=== PATIENT | female | born 1995 | race Hispanic/Latino ===

== ENCOUNTER 2018-06-05 12:26 | Emergency (ER) | END 2018-06-05 13:32 | disposition left against medical advice (07) | LOC: ERS 12:26 | DX: Z53.21 Procedure and treatment not carried out due to patient leaving prior to being seen by health care provider (principal) ==

== ENCOUNTER 2018-06-05 15:32 | Inpatient (IN) | payer SELFPAY, OTHER ==
[2018-06-05] MEDS ORDERED: Ondansetron ODT 4 MG TAB ONE (15:55)
[2018-06-05 16:30] LABS: #Monocytes 0.4 thou/uL (0.11-0.59); #Neutrophils 15.2 thou/uL (1.40-6.50); %Basophils 0.1 % (0.0-1.0); %Eosinophils 0.1 % (0.0-10.0); %Lymphocytes 5.7 % (21.0-51.0); %Monocytes 2.2 % (0.0-10.0); %Neutrophils 91.8 % (42.0-75.0); Mean Corpuscular HGB CONC 31.6 g/dL (32.0-36.0); Mean Corpuscular Hemoglobin 24.7 pg (27.0-31.0); Mean Corpuscular Volume 78.2 fL (78.0-98.0); Mean Platelet Volume 6.7 fL (7.4-10.4); Platelet Count 439 thou/uL (130-400); RBC Distribution Width 13.4 % (11.5-14.5); Red Blood Cell (RBC) Count 4.87 mill/uL (4.20-5.40); White Blood Cell (WBC) Count 16.6 thou/uL (4.8-10.8)
[2018-06-05 16:35] LABS: Bilirubin Moderate (Negative); Blood, Urine Negative (Negative); Glucose, Urine (Dipstick) Negative (Negative); Leukocyte Negative (Negative); Nitrite Negative (Negative); Protein, Urine (Dipstick) 100 mg/dL (Neg-Trace); pH, Urine 8.5 (5.0-9.0)
[2018-06-05 16:36] LABS: BHCG - Serum Negative (NEGATIVE); Pregs Control Background? CLEAR/WHITE (CLR/WHITE); Pregs Control Bar Appear? YES (CONTROL BAR)
[2018-06-05 16:39] LABS: Clarity Hazy (Clear)
[2018-06-05 16:46] LABS: RBC/HPF None Seen HPF (0-3); Squamous Epithelial 0-3 HPF (0-3); WBC/HPF 0-3 HPF (0-3)
[2018-06-05 16:46] LABS: ALT (SGPT) 118 U/L (8-55); AST (SGOT) 169 U/L (5-34); Albumin 4.5 g/dL (3.5-5.0); Alkaline Phosphatase 141 U/L (40-150); Anion Gap 14 mmol/L (10-20); BUN (Urea Nitrogen) 10 mg/dL (7.0-18.7); Bilirubin, Total 1.6 mg/dL (0.2-1.2); Calc. Creatinine Clearance 0 mL/min (70-130); Calcium 9.8 mg/dL (7.8-10.44); Carbon Dioxide 23 mmol/L (22-29); Chloride 106 mmol/L (98-107); Estimated GFR-MDRD Greater than 90; Globulin 3.9 g/dL (2.4-3.5); Glucose 140 mg/dL (70-105); Lipase 26 U/L (8-78); Potassium 3.7 mmol/L (3.5-5.1); Protein, Total 8.4 g/dL (6.0-8.3); Sodium 139 mmol/L (136-145)
[2018-06-05 16:47] LABS: Bacteria/HPF Rare-Few HPF (None Seen); Hyaline Casts/LPF NONE SEEN LPF (0-3 Hyaline)
[2018-06-05] MEDS ORDERED: Ketorolac Tromethamine 30 MG/ML VIAL ONE (17:17)
[2018-06-05] MEDS ORDERED: Morphine 4 MG/ML VIAL ONE (17:17)
[2018-06-05 17:34] LABS: HBCM Index 0.12 S/CO (0-0.79); HBSAg Index 0.36 S/CO (0-0.99); Hep A IgM AB Non-Reactive (NonReactive); Hep A IgM S/CO 0.28 S/CO (0-0.79); Hep B Surf Ag Non-Reactive S/CO (NonReactive); Hep C IgG Ab Non-Reactive (NonReactive); Hep C Index 0.16 S/CO (0-0.79); Hepatitis B Core IgM Abs Non-Reactive (NonReactive)
[2018-06-05] MEDS ORDERED: Bisacodyl 5 MG TAB PO PRN (19:29)
--- NOTE | 2018-06-05 19:55 | ULT ---
RIGHT UPPER QUADRANT ULTRASOUND: Indication: Abdominal pain on going for four months. Comparison: None. FINDINGS: The gallbladder is distended with non-vascularized echogenic oval shaped mass. There is gallbladder w all thickening and pericholecystic edema. No sonographic Christian's sign is reported, however. Common bile duct is mildly prominent measuring 6.7 mm. There is intrahepatic ductal dilatation. Overlying bowel gas limits evaluation of the pancreas. The right kidney measures 9.8 cm in length without evidence of hydronephrosis. IMPRESSION: 1. Large suspected tumefactive sludge within the gallbladder. There is gallbladder wall thickening an d pericholecystic edema but no report of sonographic Christian's sign. Overall the findings are equivoca l for acute cholecystitis. Findings may be related to biliary dyskinesia or component of chronic chol ecystitis with associated sludge. 2. There is distension of extra hepatic and intrahepatic biliary duct. No visible intraluminal sludge or stone was evident within the visualized segments. However, the distal aspect of the common bile d uct was limited due to overlying bowel gas. An MRCP or ERCP may be helpful to evaluate for a distal o bstructing process such as mass or intraluminal stone. POS: LIN
--- NOTE | 2018-06-05 20:10 | HP ---
PRIMARY CARE PROVIDER: None. CHIEF COMPLAINT: Abdominal pain. HISTORY OF PRESENT ILLNESS: Ms. Root is a pleasant 22-year-old lady, who was seen at [facility] on June 05, 2018. She delivered a baby five months ago. Over the last four months, she has had abdominal pain. She reports that the pain is in the right upper quadrant and epigastrium, radiating to the back. She describes it as sharp, worse with eating food. She also reports nausea. She reports vomiting multiple times today. She denies any fevers or chills. She has been taking Tylenol with minimal relief. Last night, she ate at [email or web address]. Today, she has worse pain than usual, therefore, she presented to the emergency room. REVIEW OF SYSTEMS: All other systems reviewed and found to be negative. PAST MEDICAL HISTORY: None. PAST SURGICAL HISTORY: None. SOCIAL HISTORY: The patient denies tobacco use, alcohol use, or recreational drug use. She has 2 children, aged 5 months and 3 years. ALLERGIES: NO KNOWN DRUG ALLERGIES. CURRENT MEDICATIONS: None. PHYSICAL EXAMINATION: GENERAL: On examination, Ms. Root is awake and alert, not in acute distress. VITAL SIGNS: Blood pressure is 131/77, pulse 93, respiratory rate 18, and oxygen saturation 96% on room air. She is afebrile. EYES: She has scleral icterus. No conjunctival pallor. ENT: Dry mucosal membranes. No oropharyngeal erythema or exudates. NECK: Supple and nontender. Trachea is midline. RESPIRATORY: Accessory muscles of breathing are not active. Chest wall movements are symmetric bilaterally. Lungs are clear to auscultation without wheeze, rhonchi, or crepitations. CARDIOVASCULAR: S1 and S2 are heard. Regular. Peripheral pulses palpable. No carotid bruit. No pericardial rub. ABDOMEN: Mild tenderness in the right upper quadrant and epigastrium. No guarding or rigidity. Bowel sounds heard. NEUROLOGIC: Cranial nerves 2 through 12 are intact. MUSCULOSKELETAL: Power is 5/5 in all 4 extremities. SKIN: No rashes or subcutaneous nodules. LYMPHATIC: No cervical lymphadenopathy. PSYCHIATRIC: Normal mood. Normal affect. The patient is oriented to person, place, and time. LABORATORY DATA: Ms. Root labs and investigations were reviewed. She has leukocytosis with 16,600 white cells, of which 91.8% on neutrophils, normal hemoglobin, elevated platelet count of 439,000. Normal electrolytes, normal creatinine, elevated total bilirubin of 1.6, elevated AST of 169, elevated ALT of 118, normal alkaline phosphatase, elevated serum total protein of 8.4, normal albumin, elevated globulin of 3.9, negative serum test and normal lipase. Urinalysis is positive for protein, bilirubin, and urobilinogen. Acute hepatitis serologies nonreactive. She had an abdominal ultrasound. Emergency room physician reports that she has choledocholithiasis. ASSESSMENT AND PLAN: Ms. Root is a pleasant 22-year-old lady, who was seen at [facility] on June 05, 2018. Her problem list includes: 1. Choledocholithiasis: Ms. Root is presenting with choledocholithiasis. She will be admitted to the hospital for further management. We will keep her n.p.o. after midnight. We will consult Gastroenterology Service for opinion and help with managing, including endoscopic retrograde cholangiopancreatography if needed. 2. Thrombocythemia: Etiology is unclear, we will recheck platelet count. LEVEL OF RISK: Moderate. LEVEL OF COMPLEXITY: Moderate. Job ID: [id number]
[2018-06-05 20:50] VITALS: BMI 34.0
[2018-06-05] MEDS: Sodium Chloride 0.9% 1,000 ML IV SCH (20:59)
[2018-06-05] MEDS: Ondansetron PF 4 MG/2 ML Vial IVP PRN (21:05)
[2018-06-05] MEDS ORDERED: HYDROcodone/Acetaminophen 5/325 mg Tablet PO PRN ×3 (21:11→21:12)
[2018-06-05] MEDS ORDERED: Acetaminophen 325 MG TAB PO PRN ×2 (21:11→21:12)
[2018-06-05] MEDS ORDERED: Morphine 4 MG/ML VIAL IV PRN (21:11)
[2018-06-05] MEDS ORDERED: Ondansetron ODT 4 MG TAB SL PRN (21:11)
[2018-06-05] MEDS ORDERED: Ondansetron PF 4 MG/2 ML Vial IVP PRN (21:11)
[2018-06-05] MEDS ORDERED: Fentanyl 100 MCG/2 ML VIAL SLOW IVP PRN (21:12)
[2018-06-06] MEDS ORDERED: Promethazine HCl 25 MG in Sodium Chloride 0.9% 50 ML IVPB SCH (01:15)
[2018-06-06] MEDS ORDERED: Promethazine HCl 25 MG/ML VIAL IVPB SCH (01:15)
[2018-06-06] MEDS: Ondansetron PF 4 MG/2 ML Vial IVP PRN ×2 (07:05→16:19)
[2018-06-06 09:12] LABS: #Monocytes 0.8 thou/uL (0.11-0.59); #Neutrophils 9.2 thou/uL (1.40-6.50); %Basophils 0.2 % (0.0-1.0); %Eosinophils 0.4 % (0.0-10.0); %Lymphocytes 8.9 % (21.0-51.0); %Monocytes 7.6 % (0.0-10.0); %Neutrophils 82.9 % (42.0-75.0); Mean Corpuscular HGB CONC 30.6 g/dL (32.0-36.0); Mean Corpuscular Hemoglobin 23.9 pg (27.0-31.0); Mean Corpuscular Volume 78.1 fL (78.0-98.0); Mean Platelet Volume 7.1 fL (7.4-10.4); Platelet Count 414 thou/uL (130-400); RBC Distribution Width 13.6 % (11.5-14.5); White Blood Cell (WBC) Count 11.1 thou/uL (4.8-10.8)
[2018-06-06] MEDS ORDERED: HYDROcodone/Acetaminophen 5/325 mg Tablet PO SCH (10:15)
[2018-06-06 10:34] LABS: ALT (SGPT) 219 U/L (8-55); AST (SGOT) 172 U/L (5-34); Albumin 3.8 g/dL (3.5-5.0); Alkaline Phosphatase 168 U/L (40-150); Anion Gap 12 mmol/L (10-20); BUN (Urea Nitrogen) 7 mg/dL (7.0-18.7); Bilirubin, Total 3.3 mg/dL (0.2-1.2); Calc. Creatinine Clearance 180 mL/min (70-130); Calcium 9.2 mg/dL (7.8-10.44); Carbon Dioxide 25 mmol/L (22-29); Chloride 105 mmol/L (98-107); Estimated GFR-MDRD Greater than 90; Globulin 3.3 g/dL (2.4-3.5); Glucose 108 mg/dL (70-105); Potassium 3.7 mmol/L (3.5-5.1); Protein, Total 7.1 g/dL (6.0-8.3); Sodium 138 mmol/L (136-145)
[2018-06-06] MEDS ORDERED: Morphine 2 MG/ML SYRINGE SLOW IVP SCH (11:15)
[2018-06-06] MEDS: Sodium Chloride 0.9% 1,000 ML IV SCH ×3 (14:15→20:58)
[2018-06-06] MEDS: Fentanyl 100 MCG/2 ML VIAL SLOW IVP PRN ×2 (16:12→20:58)
--- NOTE | 2018-06-06 17:34 | PDOC.PN ---
- Subjective Encounter Start Date: 06/06/18 Encounter Start Time: 17:32 Subjective: Admitted with RUQ pain. Still complaining of pain and nausea. -: denied fever but admitted to chill and nausea. - Objective Vital Signs & Weight: Vital Signs (12 hours) Temp Pulse Resp BP Pulse Ox 06/06/18 15:14 99 F 96 17 126/79 97 06/06/18 14:17 98.4 F 06/06/18 11:00 99.1 F 96 19 130/89 97 06/06/18 07:41 97 06/06/18 06:58 98 F 96 19 147/79 H 97 Weight Weight 174 lb I&O: 06/05/18 06/06/18 06/07/18 06:59 06:59 06:59 Intake Total 815 Balance 815 Result Diagrams: 06/06/18 08:16 06/06/18 08:16 Phys Exam - Physical Examination obese HEENT: PERRLA, moist MMs Neck: no JVD, supple, full ROM Respiratory: no wheezing, no rales, no rhonchi Cardiovascular: RRR, no significant murmur, no rub Gastrointestinal: soft, no distention, positive bowel sounds RUQ tenderness Musculoskeletal: no edema, pulses present Neurological: non-focal, moves all 4 limbs Psychiatric: normal affect, A&O x 3 Dx/Plan (1) Hyperbilirubinemia Code(s): E80.6 - OTHER DISORDERS OF BILIRUBIN METABOLISM Status: Acute (2) Dilation of common bile duct Code(s): K83.8 - OTHER SPECIFIED DISEASES OF BILIARY TRACT Status: Acute (3) Abnormal LFTs Code(s): R94.5 - ABNORMAL RESULTS OF LIVER FUNCTION STUDIES Status: Acute (4) Cholangitis due to bile duct calculus with obstruction Code(s): K80.31 - CALCULUS OF BILE DUCT W CHOLANGITIS, UNSP, WITH OBSTRUCTION Status: Acute (5) Abdominal pain Code(s): R10.9 - UNSPECIFIED ABDOMINAL PAIN Status: Acute (6) Acute cholecystitis due to biliary calculus Code(s): K80.00 - CALCULUS OF GALLBLADDER W ACUTE CHOLECYST W/O OBSTRUCTION Status: Acute - Plan Start IV zosyn for presumed cholangitis gievn leucocytosis. -: Start IV analgesic and anteiemetic as needed -: keep NPO -: Increase NS to 100 cc/hr. -: Awaiting Gi evaluation. DVT prophylaxis with lovenox. * .
[2018-06-06] MEDS: Piperacillin/Tazobactam 3.375 GM in Sodium Chloride 0.9% 100 ML IVPB SCH (17:36)
[2018-06-06] MEDS ORDERED: Enoxaparin Sodium 40 MG/0.4 ML SYRINGE SC SCH (17:45)
--- NOTE | 2018-06-06 21:54 | CON ---
DATE OF CONSULTATION: 06/06/2018 REASON FOR CONSULTATION: Abdominal pain, nausea, abnormal LFTs and sonogram. HISTORY OF PRESENT ILLNESS: Ms. Megan kuo is a 22-year-old female came to the ER with abdominal pain and nausea. The patient having abdominal pain off and on for the last 4 months. The patient did not seek medical help. The patient's pain was transient, also over the right upper quadrant and also over the back. The patient was visiting her boyfriend who was in surgical floor following the accident. She had abdominal pain yesterday. The pain is over the right upper quadrant and now going towards the back. She has had nausea off and on. She also has vomiting several times yesterday. The patient came to the ER and had abdominal sonogram. Sonogram showed dilation of the bile duct and also the possibly gallbladder sludge. Her LFTs are elevated. The bilirubin was 1.6 yesterday, today went up to 3.3; AST 169 up to 172, ALT 118 up to 219; alkaline phosphatase is 168. Calcium is normal at 9.2. Her chem-7 is normal. CBC shows leukocytosis with WBC 11,100, polymorphs 82, lymphocytes 8.9. She has no other relevant symptoms. ALLERGIES: NONE. SOCIAL HISTORY: The patient does not smoke or drink alcohol. She has 2 children and younger son is 4 months. PAST SURGICAL HISTORY: None. FAMILY HISTORY: Maternal aunts 2 of them having gallstones. MENSTRUAL HISTORY: Periods are regular. LMP 05/12/2018 and she usually bled for 4 to 5 days. REVIEW OF SYSTEMS: A 10-point system was reviewed and is unremarkable. PHYSICAL EXAMINATION: GENERAL: Appears to be in moderate discomfort. VITAL SIGNS: Afebrile. Pulse is 96, blood pressure 130/89. HEENT: She is icteric. NECK: Supple. No adenitis or thyromegaly noted. CARDIOVASCULAR SYSTEM: First and second heart sounds heard. LUNGS: Clear to auscultation. ABDOMEN: Soft. Abdomen is nondistended. Abdomen is tender over the right upper quadrant, epigastric area. There is no rebound or guarding. No organomegaly or masses. Bowel sounds normal. DIAGNOSTIC DATA: Abdominal sonogram shows dilation of the common bile duct with no definite filling defects seen. Does have some gallbladder sludge. CLINICAL IMPRESSION: Abdominal pain, nausea, vomiting, and findings of choledocholithiasis. She also has some gallbladder sludge. RECOMMENDATION: 1. N.p.o., analgesics, IV fluids. 2. ERCP with papillotomy tomorrow. 3. Surgical consult for laparoscopic cholecystectomy. 4. I met with the patient's brother, mother, and also patient explained for the need for the laparoscopy cholecystectomy and also ERCP, potential risks like bleeding, sepsis, pancreatitis, etc., were explained to the patient. We will obtain surgical consult also today and plan for ERCP tomorrow. Job ID: [id number]
[2018-06-07] MEDS: Fentanyl 100 MCG/2 ML VIAL SLOW IVP PRN ×2 (01:34→06:23)
[2018-06-07] MEDS: Piperacillin/Tazobactam 3.375 GM in Sodium Chloride 0.9% 100 ML IVPB SCH ×5 (01:36→23:48)
[2018-06-07 06:27] LABS: #Eosinphils 0.1 thou/uL (0.0-0.7); #Lymphocytes 1.6 thou/uL (1.20-3.40); #Neutrophils 8.3 thou/uL (1.40-6.50); %Basophils 0.3 % (0.0-1.0); %Eosinophils 0.7 % (0.0-10.0); %Lymphocytes 14.8 % (21.0-51.0); %Monocytes 9.3 % (0.0-10.0); %Neutrophils 74.9 % (42.0-75.0); Hemoglobin 10.8 g/dL (12.0-16.0); Mean Corpuscular HGB CONC 30.8 g/dL (32.0-36.0); Mean Corpuscular Volume 77.9 fL (78.0-98.0); Mean Platelet Volume 6.9 fL (7.4-10.4); Platelet Count 396 thou/uL (130-400); RBC Distribution Width 13.5 % (11.5-14.5); Red Blood Cell (RBC) Count 4.49 mill/uL (4.20-5.40); White Blood Cell (WBC) Count 11.1 thou/uL (4.8-10.8)
[2018-06-07 06:48] LABS: ALT (SGPT) 173 U/L (8-55); AST (SGOT) 80 U/L (5-34); Albumin 3.7 g/dL (3.5-5.0); Alkaline Phosphatase 236 U/L (40-150); Anion Gap 12 mmol/L (10-20); BUN (Urea Nitrogen) 5 mg/dL (7.0-18.7); Bilirubin, Total 4.2 mg/dL (0.2-1.2); Calc. Creatinine Clearance 190 mL/min (70-130); Calcium 9.1 mg/dL (7.8-10.44); Carbon Dioxide 24 mmol/L (22-29); Chloride 104 mmol/L (98-107); Estimated GFR-MDRD Greater than 90; Globulin 3.3 g/dL (2.4-3.5); Glucose 87 mg/dL (70-105); Potassium 3.6 mmol/L (3.5-5.1); Sodium 136 mmol/L (136-145)
[2018-06-07] MEDS ORDERED: cefOXitin 2 GM in Sodium Chloride 0.9% 100 ML IVPB SCH (08:45)
[2018-06-07] MEDS ORDERED: cefOXitin Sodium/Dextrose,Iso 2 GM in Premix Bag 1 BAG IVPB SCH (09:30)
--- NOTE | 2018-06-07 10:41 | CON ---
DATE OF CONSULTATION: CHIEF COMPLAINT: Right upper quadrant abdominal pain. HISTORY OF PRESENT ILLNESS: A 22-year-old female, 4-month history of intermittent right upper quadrant pain, which became constant and severe over the last 3 days, associated with nausea and vomiting. No fever. She is also reporting dark urine. She had an ultrasound, which showed dilated ducts, thickened gallbladder wall, and pericholecystic fluid. She is currently scheduled for ERCP today. PAST MEDICAL HISTORY: Obesity. PAST SURGICAL HISTORY: None. MEDICATIONS: No medications. ALLERGIES: NO KNOWN DRUG ALLERGIES. SOCIAL HISTORY: She is single. Unemployed. No tobacco or alcohol. FAMILY HISTORY: Diabetes and hypertension. PHYSICAL EXAMINATION: VITAL SIGNS: Temperature 98, pulse 90, and blood pressure 114/65. GENERAL: She is obese female, in minimal distress. HEENT: Some mild jaundice. LUNGS: Clear. HEART: Regular rate and rhythm. ABDOMEN: Very tender in the right upper quadrant. EXTREMITIES: Unremarkable. LABORATORY DATA: Her white count is 11, H and H 10 and 35, and platelet count 396. Her T-bilirubin is 4.2, AST of 80, ALT of 173, and lipase was normal. Negative test. Ultrasound shows tumefaction sludge in the gallbladder with wall thickening, pericholecystic fluid and extra and intrahepatic biliary ductal dilatation consistent with choledocholithiasis. ASSESSMENT: Acute cholecystitis and choledocholithiasis. PLAN: ERCP with stone extraction today. Recommend laparoscopic cholecystectomy tomorrow. Job ID: [id number]
[2018-06-07] MEDS ORDERED: Fentanyl 100 MCG/2 ML VIAL ONE (10:56)
[2018-06-07] MEDS ORDERED: Iothalamate Meglumine 60% 50 ML VIAL FS ONE (10:59)
[2018-06-07] MEDS ORDERED: Indomethacin 50 MG SUPP ONE (10:59)
[2018-06-07] MEDS ORDERED: Lidocaine 1% PF 5 ML VIAL ONE (11:55)
[2018-06-07] MEDS ORDERED: Rocuronium Bromide 10 MG/ML (10ML VIAL) ONE (11:55)
[2018-06-07] MEDS ORDERED: Glycopyrrolate 0.2 MG/ML 5 ML SYRINGE ONE (11:55)
[2018-06-07] MEDS ORDERED: Dexamethasone 20 MG/5 ML VIAL ONE (11:55)
[2018-06-07] MEDS ORDERED: PROPOFOL 200 MG/20 ML VIAL ONE (11:55)
[2018-06-07] MEDS ORDERED: Ondansetron PF 4 MG/2 ML Vial ONE (11:55)
--- NOTE | 2018-06-07 13:33 | OP ---
DATE OF PROCEDURE: 06/07/2018 OPERATIVE PROCEDURE: 1. Endoscopic retrograde cholangiopancreatography with papillotomy. 2. Endoscopic retrograde cholangiopancreatography with stone extraction of a common bile duct stone with biliary balloon size 9 to 12 mm. PREOPERATIVE DIAGNOSES: Abdominal pain, choledocholithiasis, and abnormal LFTs. POSTOPERATIVE DIAGNOSES: Abdominal pain, choledocholithiasis, and abnormal LFTs. She had a 1.5 cm sized pigmented stone removed with biliary balloon size 9 to 12 mm. DESCRIPTION OF PROCEDURE: The patient was intubated and was given sedation by Anesthesia Department. The patient was transferred from the stretcher to the fluoroscopy table. She was placed on the left lateral position and turned on her stomach. The bite block was placed. The fluoroscopy table was positioned over the patient's abdomen. A FITiST video duodenoscope under direct vision passed down the oropharynx through the GE junction into the stomach and subsequently into the descending duodenum. The papilla was identified. The papilla appears flat and I did not see bilious drainage. The papilla was cannulated over a guidewire selectively the common bile duct. Upon injection of the common bile duct, the duct appeared dilated and also there was a filling defect seen. A generous papillotomy was made over the guidewire at 12 o'clock position. The cut was made at approximately 1.5 cm in size. Following the papillotomy, the brisk bile drainage noted and I could see a stone floating in the bile duct. The papillotome was exchanged with the biliary balloon size 9 to 12 mm over the guidewire. The balloon was advanced all the way into the common bile duct and was inflated and large stone was extracted without any difficulty. There was good emptying of bile duct noted. Subsequently occlusion cholangiogram showed no more filling defect and the balloon was used to sweep the bile duct out of the 4 ducts. No more stone extracted. This was good emptying of the bile duct noted. The stomach decompressed and the scope brought out. RECOMMENDATIONS: 1. Discontinue n.p.o. later on today. 2. Clear liquid diet. 3. Laparoscopic cholecystectomy by Dr. Simeon Gleason tomorrow. Job ID: [id number]
--- NOTE | 2018-06-07 14:16 | RAD ---
ERCP: HISTORY: Abdominal pain for months. TECHNIQUE: Six portable fluoroscopic spot views are presented for interpretation. FINDINGS: On the initial injected images, there is a filling defect in the common bile duct with dilatation of the common bile duct and visualized intrahepatic ducts. Only minimal filling of the cystic duct, whi ch has a somewhat irregular appearance. IMPRESSION: Filling defect in the common bile duct with dilatation, concerning for intraductal calculus. POS: LIN
[2018-06-07] MEDS: Sodium Chloride 0.9% 1,000 ML IV SCH ×2 (14:37→20:18)
--- NOTE | 2018-06-07 19:02 | PDOC.PN ---
- Subjective Encounter Start Date: 06/07/18 Encounter Start Time: 08:00 Subjective: No new problem. still having pain. -: For ERCP today - Objective Vital Signs & Weight: Vital Signs (12 hours) Temp Pulse Resp BP Pulse Ox 06/07/18 17:06 81 113/70 98 06/07/18 16:35 71 107/69 95 06/07/18 16:05 81 108/69 99 06/07/18 15:06 98.3 F 74 114/75 96 06/07/18 14:52 98.3 F 76 18 113/76 96 06/07/18 14:07 75 18 116/79 95 06/07/18 13:05 98.3 F 86 18 119/77 94 L 06/07/18 07:41 97 Weight Weight 174 lb I&O: 06/06/18 06/07/18 06/08/18 06:59 06:59 06:59 Intake Total 815 1731 1206 Balance 815 1731 1206 Result Diagrams: 06/07/18 05:53 06/07/18 05:53 Phys Exam - Physical Examination HEENT: PERRLA Neck: no JVD, full ROM Respiratory: no wheezing, no rales, no rhonchi Cardiovascular: RRR, no significant murmur Gastrointestinal: soft, no distention, positive bowel sounds Musculoskeletal: no edema, pulses present Neurological: non-focal, moves all 4 limbs Psychiatric: normal affect, A&O x 3 Dx/Plan (1) Cholangitis due to bile duct calculus with obstruction Code(s): K80.31 - CALCULUS OF BILE DUCT W CHOLANGITIS, UNSP, WITH OBSTRUCTION Status: Acute (2) Acute cholecystitis due to biliary calculus Code(s): K80.00 - CALCULUS OF GALLBLADDER W ACUTE CHOLECYST W/O OBSTRUCTION Status: Acute (3) Hyperbilirubinemia Code(s): E80.6 - OTHER DISORDERS OF BILIRUBIN METABOLISM Status: Acute (4) Dilation of common bile duct Code(s): K83.8 - OTHER SPECIFIED DISEASES OF BILIARY TRACT Status: Acute (5) Abnormal LFTs Code(s): R94.5 - ABNORMAL RESULTS OF LIVER FUNCTION STUDIES Status: Acute (6) Abdominal pain Code(s): R10.9 - UNSPECIFIED ABDOMINAL PAIN Status: Acute - Plan Continue analgesic and antibiotics. -: For ERCP today. -: Awaiting surgery evaluation * .
[2018-06-08] MEDS: Sodium Chloride 0.9% 1,000 ML IV SCH ×2 (05:17→16:59)
[2018-06-08] MEDS: Piperacillin/Tazobactam 3.375 GM in Sodium Chloride 0.9% 100 ML IVPB SCH ×4 (05:17→23:06)
[2018-06-08 05:54] LABS: #Monocytes 0.6 thou/uL (0.11-0.59); #Neutrophils 6.2 thou/uL (1.40-6.50); %Basophils 0.2 % (0.0-1.0); %Eosinophils 0.5 % (0.0-10.0); %Lymphocytes 22.7 % (21.0-51.0); %Monocytes 7.2 % (0.0-10.0); %Neutrophils 69.4 % (42.0-75.0); Hemoglobin 9.6 g/dL (12.0-16.0); Mean Corpuscular HGB CONC 30.5 g/dL (32.0-36.0); Mean Corpuscular Hemoglobin 23.7 pg (27.0-31.0); Mean Corpuscular Volume 77.7 fL (78.0-98.0); Mean Platelet Volume 6.8 fL (7.4-10.4); Platelet Count 336 thou/uL (130-400); RBC Distribution Width 13.6 % (11.5-14.5); Red Blood Cell (RBC) Count 4.03 mill/uL (4.20-5.40); White Blood Cell (WBC) Count 8.9 thou/uL (4.8-10.8)
[2018-06-08] MEDS ORDERED: cefOXitin Sodium/Dextrose,Iso 2 GM in Premix Bag 1 BAG IVPB SCH (06:00)
[2018-06-08 06:18] LABS: ALT (SGPT) 125 U/L (8-55); AST (SGOT) 49 U/L (5-34); Albumin 3.3 g/dL (3.5-5.0); Alkaline Phosphatase 207 U/L (40-150); Anion Gap 10 mmol/L (10-20); BUN (Urea Nitrogen) 8 mg/dL (7.0-18.7); Bilirubin, Total 1.6 mg/dL (0.2-1.2); Calc. Creatinine Clearance 200 mL/min (70-130); Calcium 8.6 mg/dL (7.8-10.44); Carbon Dioxide 24 mmol/L (22-29); Chloride 108 mmol/L (98-107); Estimated GFR-MDRD Greater than 90; Globulin 2.8 g/dL (2.4-3.5); Glucose 85 mg/dL (70-105); Potassium 3.6 mmol/L (3.5-5.1); Protein, Total 6.1 g/dL (6.0-8.3); Sodium 138 mmol/L (136-145)
[2018-06-08] MEDS ORDERED: Fentanyl 100 MCG/2 ML VIAL ONE (06:18)
[2018-06-08] MEDS ORDERED: Bupivacaine/Epinephrine 0.25% 30 ML VIAL ONE (06:25)
[2018-06-08] MEDS ORDERED: Mag-Al 1200 mg/1200 mg/30 ML UDCUP PO PRN (08:48)
[2018-06-08] MEDS ORDERED: Ondansetron PF 4 MG/2 ML Vial IVP PRN (08:48)
[2018-06-08] MEDS ORDERED: Promethazine HCl 25 MG/ML VIAL IM PRN ×2 (08:48→08:55)
[2018-06-08] MEDS ORDERED: Dextrose 50% Abboject 50 ML SYRINGE SLOW IVP PRN (08:48)
[2018-06-08] MEDS ORDERED: Calcium Carbonate 500 MG ChewTAB PO PRN (08:48)
[2018-06-08] MEDS ORDERED: hydrALAZINE 20 MG/ML VIAL SLOW IVP PRN (08:48)
[2018-06-08] MEDS ORDERED: HYDROcodone/Acetaminophen 10/325 mg Tablet PO PRN ×2 (08:48)
[2018-06-08] MEDS ORDERED: Dextrose 5% in Water 1,000 ML IV PRN (08:48)
[2018-06-08] MEDS ORDERED: Morphine 4 MG/ML VIAL SLOW IVP PRN ×2 (08:48→09:36)
[2018-06-08] MEDS ORDERED: Meperidine HCl/PF 25 MG/ML VIAL SLOW IVP PRN (08:55)
[2018-06-08] MEDS ORDERED: Ondansetron HCl/PF 4 MG/2 ML Vial IVP PRN (08:55)
[2018-06-08] MEDS ORDERED: Morphine Sulfate 2 MG/ML SYRINGE SLOW IVP PRN (08:55)
[2018-06-08] MEDS ORDERED: Promethazine HCl 25 MG/ML VIAL SLOW IVP PRN (08:55)
[2018-06-08] MEDS: Enoxaparin Sodium 40 MG/0.4 ML SYRINGE SC SCH (09:00)
[2018-06-08] MEDS ORDERED: Meperidine HCl/PF 25 MG/ML VIAL ONE (09:00)
[2018-06-08] MEDS ORDERED: Promethazine HCl 25 MG/ML VIAL ONE (09:11)
[2018-06-08] MEDS ORDERED: Morphine 4 MG/ML VIAL ONE (09:23)
[2018-06-08] MEDS: Famotidine 20 MG TAB PO SCH ×2 (11:12→20:07)
[2018-06-08] MEDS: Ketorolac Tromethamine 30 MG/ML VIAL IVP SCH ×3 (11:12→23:06)
[2018-06-08] MEDS: Famotidine/PF 20 mg/2ml Vial SLOW IVP SCH ×2 (11:13→20:05)
--- NOTE | 2018-06-08 11:15 | OP ---
DATE OF PROCEDURE: 06/08/2018 PREOPERATIVE DIAGNOSES: Choledocholithiasis, acute cholecystitis. PROCEDURE PERFORMED: Laparoscopic cholecystectomy. INDICATIONS: This is a 22-year-old female, who came in with severe right upper quadrant pain and elevated bilirubin and dilated ducts on ultrasound as well as gallstones. FINDINGS: A very dilated cystic duct, thickened wall, multiple stones. DESCRIPTION OF PROCEDURE: After informed consent was obtained, the patient was taken to the operating room and given general endotracheal anesthesia, placed in the supine position. Abdomen was prepped and draped in usual fashion. Local anesthesia infiltrated subcutaneously and deep. A subumbilical incision was performed. Subcu divided sharply. The fascia was grasped with two stay sutures of 0 Vicryl, placed in each side of midline. Midline incised. Digital palpation revealed no local adhesions. A blunt 12 mm trocar inserted. Pneumoperitoneum was created to a pressure of 15 mmHg. A 0-degree laparoscope was inserted under direct vision. Three 5 mm ports were placed subcostally. The gallbladder was distended, thickened, and inflamed. An aspirating needle was inserted within the gallbladder. 15 mL of thick fluid removed from the gallbladder. This allowed the ability to grasp the gallbladder and advanced superiorly. The peritoneum dissected distally to expose a very dilated cystic duct. There was quite a bit of inflammation and I did not see the artery initially. The duct was too large to be clipped. The duct was divided just at the base of the gallbladder and doubly ligated with 0 PDS Endoloop. Then, the gallbladder was dissected further and revealed a partially intrahepatic cystic duct. This was triply ligated and divided; however, another branch was found had to have two more clips placed on it. Then, the gallbladder was removed from its fossa utilizing electrocautery, was placed in endosac, removed from the abdomen in the endosac. Hemostasis assured. The abdomen thoroughly irrigated. Irrigation fluid removed. Trocars and retractors removed. The fascia closed with interrupted 0 Vicryl suture. The skin closed with interrupted 4-0 Rapide. Dermabond applied. The patient tolerated the procedure well, transferred to Recovery in good condition. Sponge and needle count verified correct x2. Job ID: [id number]
[2018-06-08] MEDS ORDERED: Lidocaine 1% PF 5 ML VIAL ONE (13:44)
[2018-06-08] MEDS ORDERED: PROPOFOL 200 MG/20 ML VIAL ONE (13:44)
[2018-06-08] MEDS ORDERED: Glycopyrrolate 0.2 MG/ML 5 ML SYRINGE ONE (13:44)
[2018-06-08] MEDS ORDERED: Rocuronium Bromide 10 MG/ML (10ML VIAL) ONE (13:44)
[2018-06-08] MEDS ORDERED: Dexamethasone 20 MG/5 ML VIAL ONE (13:44)
[2018-06-08] MEDS ORDERED: Ondansetron PF 4 MG/2 ML Vial ONE (13:44)
--- NOTE | 2018-06-08 15:06 | PDOC.PN ---
- Subjective Encounter Start Date: 06/08/18 Encounter Start Time: 15:04 Subjective: Had lap christina earlier today. feeling better. tolerating clear liquid diet -: No fever. Abd pain has subsided. - Objective Vital Signs & Weight: Vital Signs (12 hours) Temp Pulse Resp BP Pulse Ox 06/08/18 11:20 98.1 F 60 16 127/84 97 06/08/18 10:30 73 16 120/80 98 06/08/18 10:22 98 06/08/18 10:05 98.1 F 70 16 126/88 98 Weight Weight 174 lb I&O: 06/07/18 06/08/18 06/09/18 06:59 06:59 06:59 Intake Total 1731 2216 Balance 1731 2216 Result Diagrams: 06/08/18 05:30 06/08/18 05:30 Phys Exam - Physical Examination Obese HEENT: PERRLA, moist MMs Neck: no JVD, supple Respiratory: no wheezing, no rales, no rhonchi Cardiovascular: RRR, no significant murmur Gastrointestinal: soft, no distention, positive bowel sounds Musculoskeletal: no edema, pulses present Neurological: non-focal, moves all 4 limbs Psychiatric: normal affect, A&O x 3 Dx/Plan (1) Cholangitis due to bile duct calculus with obstruction Code(s): K80.31 - CALCULUS OF BILE DUCT W CHOLANGITIS, UNSP, WITH OBSTRUCTION Status: Acute Comment: S/p ERCP with sphincterotomy with stone extraction (2) Acute cholecystitis due to biliary calculus Code(s): K80.00 - CALCULUS OF GALLBLADDER W ACUTE CHOLECYST W/O OBSTRUCTION Status: Acute Comment: S/p lap cholecystectomy (3) Hyperbilirubinemia Code(s): E80.6 - OTHER DISORDERS OF BILIRUBIN METABOLISM Status: Acute (4) Dilation of common bile duct Code(s): K83.8 - OTHER SPECIFIED DISEASES OF BILIARY TRACT Status: Acute (5) Abnormal LFTs Code(s): R94.5 - ABNORMAL RESULTS OF LIVER FUNCTION STUDIES Status: Acute (6) Abdominal pain Code(s): R10.9 - UNSPECIFIED ABDOMINAL PAIN Status: Acute - Plan Continue antibiotics and analgesic. -: Analgesic as needed -: advance diet astolerated. -: Repeat CMP and CBC in the am. -: Possible discharge tomorrow * .
[2018-06-09] MEDS: Sodium Chloride 0.9% 1,000 ML IV SCH (05:37)
[2018-06-09] MEDS: Piperacillin/Tazobactam 3.375 GM in Sodium Chloride 0.9% 100 ML IVPB SCH (05:37)
[2018-06-09] MEDS: Ketorolac Tromethamine 30 MG/ML VIAL IVP SCH (05:38)
[2018-06-09 07:24] LABS: #Eosinphils 0.1 thou/uL (0.0-0.7); #Lymphocytes 3.3 thou/uL (1.20-3.40); #Monocytes 0.7 thou/uL (0.11-0.59); #Neutrophils 5.9 thou/uL (1.40-6.50); %Basophils 0.5 % (0.0-1.0); %Eosinophils 1.4 % (0.0-10.0); %Lymphocytes 32.9 % (21.0-51.0); %Monocytes 7.2 % (0.0-10.0); Hemoglobin 9.3 g/dL (12.0-16.0); Mean Corpuscular HGB CONC 31.1 g/dL (32.0-36.0); Mean Corpuscular Hemoglobin 24.5 pg (27.0-31.0); Mean Corpuscular Volume 78.9 fL (78.0-98.0); Mean Platelet Volume 7.2 fL (7.4-10.4); Platelet Count 351 thou/uL (130-400); Red Blood Cell (RBC) Count 3.77 mill/uL (4.20-5.40); White Blood Cell (WBC) Count 10.2 thou/uL (4.8-10.8)
[2018-06-09 07:32] LABS: ALT (SGPT) 102 U/L (8-55); AST (SGOT) 41 U/L (5-34); Albumin 2.9 g/dL (3.5-5.0); Alkaline Phosphatase 169 U/L (40-150); Anion Gap 12 mmol/L (10-20); BUN (Urea Nitrogen) 8 mg/dL (7.0-18.7); Bilirubin, Total 0.9 mg/dL (0.2-1.2); Calc. Creatinine Clearance 216 mL/min (70-130); Calcium 8.1 mg/dL (7.8-10.44); Carbon Dioxide 22 mmol/L (22-29); Chloride 108 mmol/L (98-107); Estimated GFR-MDRD Greater than 90; Globulin 2.6 g/dL (2.4-3.5); Glucose 77 mg/dL (70-105); Lipase 22 U/L (8-78); Potassium 3.5 mmol/L (3.5-5.1); Protein, Total 5.5 g/dL (6.0-8.3); Sodium 138 mmol/L (136-145)
[2018-06-09] MEDS: Famotidine 20 MG TAB PO SCH (09:10)
[2018-06-09] MEDS: Enoxaparin Sodium 40 MG/0.4 ML SYRINGE SC SCH (09:11)
[2018-06-09] MEDS: Famotidine/PF 20 mg/2ml Vial SLOW IVP SCH (09:12)
[2018-06-09 09:27] LABS: Iron 26 ug/dL (50-170); Iron Binding Capacity, Total 251 mcg/dL (265-497)
--- NOTE | 2018-06-09 10:05 | DIS ---
DATE OF ADMISSION: 06/05/2018 DATE OF DISCHARGE: 06/09/2018 DISCHARGE DIAGNOSES: Acute cholecystitis, choledocholithiasis. PROCEDURES DURING ADMISSION: Endoscopic retrograde cholangiopancreatography with stone extraction and laparoscopic cholecystectomy. HOSPITAL COURSE: The patient was admitted. GI was consulted. An ERCP was performed. Stone extracted with sphincterotomy. The following day, she underwent a laparoscopic cholecystectomy. She was found to have acute cholecystitis. Postoperatively, she has done well. She is tolerating diet well. Pain is controlled on p.o. medications. She is discharged home on hydrocodone and doxycycline. She will follow up with me in 2 weeks. Job ID: [id number]
[2018-06-09 10:36] VITALS: BP 111/70; TEMP 98
--- NOTE | 2018-06-09 12:14 | PDOC.PN ---
- Subjective Encounter Start Date: 06/09/18 Encounter Start Time: 10:13 Subjective: Seen and examined. No new problem tolerating diet. denied fever - Objective Vital Signs & Weight: Vital Signs (12 hours) Temp Pulse Resp BP BP Pulse Ox 06/09/18 10:00 98.0 F 68 15 111/70 98 06/09/18 09:00 98 06/09/18 08:00 98.2 F 70 16 105/69 98 06/09/18 01:15 98 F 70 16 102/66 98 Weight Weight 174 lb I&O: 06/08/18 06/09/18 06/10/18 06:59 06:59 06:59 Intake Total 2216 2506 Balance 2216 2506 Result Diagrams: 06/09/18 06:24 06/09/18 06:24 Phys Exam - Physical Examination obese HEENT: PERRLA Neck: no JVD, full ROM Respiratory: no wheezing, no rales, no rhonchi Cardiovascular: RRR, no rub Gastrointestinal: soft, no distention, positive bowel sounds appropriate mild diffuse tenderness Musculoskeletal: no edema, pulses present Neurological: non-focal, moves all 4 limbs Psychiatric: normal affect, A&O x 3 Dx/Plan (1) Cholangitis due to bile duct calculus with obstruction Code(s): K80.31 - CALCULUS OF BILE DUCT W CHOLANGITIS, UNSP, WITH OBSTRUCTION Status: Acute Comment: S/p ERCP with sphincterotomy with stone extraction (2) Acute cholecystitis due to biliary calculus Code(s): K80.00 - CALCULUS OF GALLBLADDER W ACUTE CHOLECYST W/O OBSTRUCTION Status: Acute Comment: S/p lap cholecystectomy (3) Hyperbilirubinemia Code(s): E80.6 - OTHER DISORDERS OF BILIRUBIN METABOLISM Status: Acute (4) Dilation of common bile duct Code(s): K83.8 - OTHER SPECIFIED DISEASES OF BILIARY TRACT Status: Acute (5) Abnormal LFTs Code(s): R94.5 - ABNORMAL RESULTS OF LIVER FUNCTION STUDIES Status: Acute (6) Abdominal pain Code(s): R10.9 - UNSPECIFIED ABDOMINAL PAIN Status: Acute - Plan For discharge today. * .
== END 2018-06-09 10:34 | disposition home or self-care (01) | DRG 419 ==
LOC: ERS 15:32 → T4-B 20:29
PROVIDERS: ADMIT Internal Medicine; ATTEND Internal Medicine
PROC: 0FC98ZZ Extirpation of Matter from Common Bile Duct, Via Natural or Artificial Opening Endoscopic (ICD-10-PCS; principal; 2018-06-07)
PROC: 0FT44ZZ Resection of Gallbladder, Percutaneous Endoscopic Approach (ICD-10-PCS; 2018-06-08)
DX: K80.42 Calculus of bile duct with acute cholecystitis without obstruction (principal); D47.3 Essential (hemorrhagic) thrombocythemia; E66.9 Obesity, unspecified; Z68.36 Body mass index [BMI] 36.0-36.9, adult
CPT/HCPCS: 36415; 74330; 76705; 80053; 80074; 81003; 81015; 83540; 83550; 83690; 84703; 85025; 88304; 96374; 96375; J0131; J0694; J1100; J1650; J1885; J2001; J2175; J2270; J2405; J2543; J2550; J2704; J3010; J7050; Q0162; Q9961; S0028